=== PATIENT | female | born 1960 | race Caucasian/White ===

== ENCOUNTER 2020-10-30 05:50 | Outpatient (REF) | payer OTHER, SELFPAY ==
[2020-10-30 06:14] LABS: MANUAL DIFF FLAG NO
[2020-10-30 06:51] LABS: Alanine Aminotransferase 10 U/L (0-31); Albumin Level 2.6 g/dL (3.5-5.0); Alkaline Phosphatase 89 U/L (39-117); Anion Gap 11 (12-20); Aspartate Amino Transferase 19 U/L (5-31); Bilirubin Total 1.1 mg/dL (0.0-1.0); Blood Urea Nitrogen 27 mg/dL (9-16); Carbon Dioxide 28 mmol/L (22-29); Chloride 101 mmol/L (96-108); Glucose Random 160 mg/dL (60-115); Sodium 136 mmol/L (135-145); Total Protein 5.2 g/dL (6.5-8.0)
[2020-10-30 06:53] LABS: Basophils Percent Auto 0.9 % (0-2); Eosinophils Absolute Auto 0.2 X10*3/uL (0.0-0.4); Eosinophils Percent Auto 3.6 % (0-4); Hematocrit 29.5 % (37-47); Hemoglobin 8.9 g/dl (12.0-16.0); Imm Gran Abs Auto 0.01 X10*3/uL (0.00-0.03); Imm Gran Pct Auto 0.2 % (0.0-0.4); Lymphocytes Absolute Auto 0.8 X10*3/uL (1.2-4.9); Lymphocytes Percent Auto 17.2 % (20-40); Mean Corpuscular HGB Conc 30.2 g/dl (31.0-35.0); Mean Corpuscular Hemoglobin 23.1 pg (27.0-33.0); Mean Corpuscular Volume 76.4 fL (80-98); Monocytes Absolute Auto 0.5 X10*3/uL (0.1-1.2); Monocytes Percent Auto 10.8 % (2-11); Neutrophils Percent Auto 67.3 % (45-73); Red Blood Count 3.86 X10*6/uL (4.20-5.50); Red Cell Distribution Width 19.6 % (11.0-16.0); White Blood Count 4.4 X10*3/uL (4.8-10.8)
[2020-10-30 06:56] LABS: Platelet Count 90 X10*3/uL (160-400)
[2020-10-30 07:05] LABS: Estimated Glomerular Filt Rate 10
== END 2020-10-30 05:51 | disposition home or self-care (01) ==
LOC: HO.MMNH3L 05:50
PROVIDERS: Visit Provider Family Medicine
DX: N18.4 Chronic kidney disease, stage 4 (severe) (principal); E11.22 Type 2 diabetes mellitus with diabetic chronic kidney disease
CPT/HCPCS: 36415; 80053; 85025

== ENCOUNTER 2020-11-03 09:56 | Outpatient (REF) | payer OTHER, SELFPAY ==
[2020-11-03 08:33] LABS: Hematocrit 30.6 % (37-47); Mean Corpuscular HGB Conc 29.4 g/dl (31.0-35.0)
[2020-11-03 08:34] LABS: Mean Corpuscular Hemoglobin 22.3 pg (27.0-33.0); Mean Corpuscular Volume 75.9 fL (80-98); Red Blood Count 4.03 X10*6/uL (4.20-5.50); Red Cell Distribution Width 18.3 % (11.0-16.0); White Blood Count 5.1 X10*3/uL (4.8-10.8)
[2020-11-03 09:13] LABS: Anion Gap 12 (12-20); Blood Urea Nitrogen 22 mg/dL (9-16); Calcium 8.7 mg/dL (8.4-10.2); Carbon Dioxide 29 mmol/L (22-29); Chloride 102 mmol/L (96-108); Estimated Glomerular Filt Rate 13; Glucose Random 90 mg/dL (60-115); Sodium 139 mmol/L (135-145)
[2020-11-03 09:19] LABS: Platelet Count 92 X10*3/uL (160-400)
[2020-11-03 09:20] LABS: PLT ABN DIST 1
== END 2020-11-03 09:57 | disposition home or self-care (01) ==
LOC: HO.MMNH3L 09:56
PROVIDERS: Visit Provider Family Medicine
DX: E11.22 Type 2 diabetes mellitus with diabetic chronic kidney disease (principal); N18.4 Chronic kidney disease, stage 4 (severe)
CPT/HCPCS: 36415; 80048; 85027

== ENCOUNTER 2020-11-10 00:19 | Outpatient (REF) | payer OTHER, SELFPAY ==
[2020-11-10 07:39] LABS: Mean Corpuscular HGB Conc 29.6 g/dl (31.0-35.0); Mean Corpuscular Volume 77.5 fL (80-98)
[2020-11-10 07:41] LABS: Hematocrit 33.1 % (37-47); Hemoglobin 9.8 g/dl (12.0-16.0); Platelet Count 109 X10*3/uL (160-400); Red Blood Count 4.27 X10*6/uL (4.20-5.50); Red Cell Distribution Width 17.2 % (11.0-16.0); White Blood Count 6.8 X10*3/uL (4.8-10.8)
[2020-11-10 07:53] LABS: PLT ABN DIST 1
[2020-11-10 08:10] LABS: Anion Gap 14 (12-20); Blood Urea Nitrogen 21 mg/dL (9-16); Carbon Dioxide 30 mmol/L (22-29); Chloride 101 mmol/L (96-108); Estimated Glomerular Filt Rate 12; Glucose Random 90 mg/dL (60-115); Potassium 3.6 mmol/L (3.3-5.1); Sodium 141 mmol/L (135-145)
== END 2020-11-10 00:20 | disposition home or self-care (01) ==
LOC: HO.MMNH3L 00:19
PROVIDERS: Visit Provider Family Medicine
DX: E11.22 Type 2 diabetes mellitus with diabetic chronic kidney disease (principal); N18.4 Chronic kidney disease, stage 4 (severe)
CPT/HCPCS: 36415; 80048; 85027

== ENCOUNTER 2020-11-17 00:55 | Outpatient (REF) | payer OTHER, SELFPAY ==
[2020-11-17 07:39] LABS: Hematocrit 31.6 % (37-47); Hemoglobin 9.3 g/dl (12.0-16.0); Mean Corpuscular HGB Conc 29.4 g/dl (31.0-35.0); Mean Corpuscular Hemoglobin 22.3 pg (27.0-33.0); Mean Corpuscular Volume 75.8 fL (80-98); Red Blood Count 4.17 X10*6/uL (4.20-5.50); Red Cell Distribution Width 16.7 % (11.0-16.0); White Blood Count 6.7 X10*3/uL (4.8-10.8)
[2020-11-17 07:40] LABS: Platelet Count 79 X10*3/uL (160-400)
[2020-11-17 08:57] LABS: Anion Gap 14 (12-20); Blood Urea Nitrogen 23 mg/dL (9-16); Calcium 8.9 mg/dL (8.4-10.2); Carbon Dioxide 27 mmol/L (22-29); Chloride 102 mmol/L (96-108); Estimated Glomerular Filt Rate 13; Glucose Random 48 mg/dL (60-115); Potassium 3.6 mmol/L (3.3-5.1); Sodium 139 mmol/L (135-145)
== END 2020-11-17 00:56 | disposition home or self-care (01) ==
LOC: HO.MMNH3L 00:55
PROVIDERS: Visit Provider Family Medicine
DX: E11.22 Type 2 diabetes mellitus with diabetic chronic kidney disease (principal); N18.4 Chronic kidney disease, stage 4 (severe)
CPT/HCPCS: 36415; 80048; 85027

== ENCOUNTER 2020-11-24 00:40 | Outpatient (REF) | payer OTHER, SELFPAY ==
[2020-11-24 07:14] LABS: Hemoglobin 9.3 g/dl (12.0-16.0); Mean Corpuscular HGB Conc 29.1 g/dl (31.0-35.0)
[2020-11-24 07:16] LABS: Mean Corpuscular Hemoglobin 22.4 pg (27.0-33.0); Mean Corpuscular Volume 76.9 fL (80-98); Platelet Count 107 X10*3/uL (160-400); Red Blood Count 4.16 X10*6/uL (4.20-5.50); White Blood Count 5.9 X10*3/uL (4.8-10.8)
[2020-11-24 07:20] LABS: INTERNATIONAL NORM RATIO 1.2 (0.9-1.1)
[2020-11-24 07:54] LABS: Alanine Aminotransferase 14 U/L (0-31); Albumin Level 2.3 g/dL (3.5-5.0); Alkaline Phosphatase 111 U/L (39-117); Anion Gap 12 (12-20); Aspartate Amino Transferase 36 U/L (5-31); Bilirubin Direct 0.6 mg/dL (0.0-0.5); Bilirubin Total 0.9 mg/dL (0.0-1.0); Blood Urea Nitrogen 21 mg/dL (9-16); Calcium 8.8 mg/dL (8.4-10.2); Carbon Dioxide 30 mmol/L (22-29); Chloride 101 mmol/L (96-108); Estimated Glomerular Filt Rate 13; Glucose Random 61 mg/dL (60-115); Potassium 3.4 mmol/L (3.3-5.1); Sodium 140 mmol/L (135-145); Total Protein 5.4 g/dL (6.5-8.0)
== END 2020-11-24 00:41 | disposition home or self-care (01) ==
LOC: HO.MMNH3L 00:40
PROVIDERS: Visit Provider Family Medicine
DX: N18.4 Chronic kidney disease, stage 4 (severe) (principal)
CPT/HCPCS: 36415; 80048; 80076; 85027; 85610

== ENCOUNTER 2020-12-01 00:33 | Outpatient (REF) | payer OTHER, SELFPAY ==
[2020-12-01 06:50] LABS: Mean Corpuscular Volume 75.7 fL (80-98); Red Cell Distribution Width 16.8 % (11.0-16.0)
[2020-12-01 06:52] LABS: Hematocrit 30.8 % (37-47); Hemoglobin 9.1 g/dl (12.0-16.0); Mean Corpuscular HGB Conc 29.5 g/dl (31.0-35.0); Mean Corpuscular Hemoglobin 22.4 pg (27.0-33.0); Red Blood Count 4.07 X10*6/uL (4.20-5.50); White Blood Count 5.2 X10*3/uL (4.8-10.8)
[2020-12-01 07:37] LABS: Platelet Count 77 X10*3/uL (160-400)
[2020-12-01 07:38] LABS: PLT ABN DIST 1
[2020-12-01 08:40] LABS: Anion Gap 15 (12-20); Blood Urea Nitrogen 30 mg/dL (9-16); Calcium 8.9 mg/dL (8.4-10.2); Carbon Dioxide 28 mmol/L (22-29); Chloride 101 mmol/L (96-108); Estimated Glomerular Filt Rate 11; Glucose Random 40 mg/dL (60-115); Potassium 4.1 mmol/L (3.3-5.1); Sodium 140 mmol/L (135-145)
== END 2020-12-01 00:34 | disposition home or self-care (01) ==
LOC: HO.MMNH3L 00:33
PROVIDERS: Visit Provider Family Medicine
DX: E11.22 Type 2 diabetes mellitus with diabetic chronic kidney disease (principal); N18.9 Chronic kidney disease, unspecified
CPT/HCPCS: 36415; 80048; 85027

== ENCOUNTER 2020-12-08 01:02 | Outpatient (REF) | payer OTHER, SELFPAY ==
[2020-12-08 07:33] LABS: Hemoglobin 10.2 g/dl (12.0-16.0); Mean Corpuscular Hemoglobin 22.3 pg (27.0-33.0); Red Blood Count 4.58 X10*6/uL (4.20-5.50)
[2020-12-08 07:34] LABS: Hematocrit 35.6 % (37-47); Mean Corpuscular HGB Conc 28.7 g/dl (31.0-35.0); Mean Corpuscular Volume 77.7 fL (80-98); Platelet Count 109 X10*3/uL (160-400); Red Cell Distribution Width 17.2 % (11.0-16.0); White Blood Count 6.8 X10*3/uL (4.8-10.8)
[2020-12-08 07:37] LABS: INTERNATIONAL NORM RATIO 1.1 (0.9-1.1); Prothrombin Time 13.3 SEC (10.8-13.0)
[2020-12-08 08:09] LABS: PLT ABN DIST 1
[2020-12-08 08:15] LABS: Anion Gap 14 (12-20); Blood Urea Nitrogen 24 mg/dL (9-16); Calcium 9.2 mg/dL (8.4-10.2); Carbon Dioxide 28 mmol/L (22-29); Chloride 102 mmol/L (96-108); Estimated Glomerular Filt Rate 12; Glucose Random 75 mg/dL (60-115); Potassium 4.2 mmol/L (3.3-5.1); Sodium 140 mmol/L (135-145)
[2020-12-08 11:55] LABS: Ammonia 61 umol/L (13-55)
== END 2020-12-08 01:03 | disposition home or self-care (01) ==
LOC: HO.MMNH3L 01:02
PROVIDERS: Visit Provider Family Medicine
DX: K75.81 Nonalcoholic steatohepatitis (NASH) (principal); N17.9 Acute kidney failure, unspecified; E11.22 Type 2 diabetes mellitus with diabetic chronic kidney disease; N18.9 Chronic kidney disease, unspecified
CPT/HCPCS: 36415; 80048; 82140; 85027; 85610

== ENCOUNTER 2020-12-15 05:00 | Outpatient (REF) | payer OTHER, SELFPAY ==
[2020-12-15 07:02] LABS: INTERNATIONAL NORM RATIO 1.1 (0.9-1.1); Prothrombin Time 13.5 SEC (10.8-13.0)
[2020-12-15 07:08] LABS: Hemoglobin 10.2 g/dl (12.0-16.0)
[2020-12-15 07:10] LABS: Hematocrit 34.2 % (37-47); Mean Corpuscular HGB Conc 29.8 g/dl (31.0-35.0); Mean Corpuscular Hemoglobin 22.9 pg (27.0-33.0); Mean Corpuscular Volume 76.7 fL (80-98); Red Blood Count 4.46 X10*6/uL (4.20-5.50); Red Cell Distribution Width 17.8 % (11.0-16.0); White Blood Count 5.9 X10*3/uL (4.8-10.8)
[2020-12-15 07:25] LABS: Platelet Count 83 X10*3/uL (160-400)
[2020-12-15 07:54] LABS: Alanine Aminotransferase 18 U/L (0-31); Albumin Level 2.4 g/dL (3.5-5.0); Alkaline Phosphatase 117 U/L (39-117); Anion Gap 16 (12-20); Aspartate Amino Transferase 35 U/L (5-31); Bilirubin Direct 0.7 mg/dL (0.0-0.5); Bilirubin Total 1.3 mg/dL (0.0-1.0); Blood Urea Nitrogen 26 mg/dL (9-16); Calcium 9.1 mg/dL (8.4-10.2); Carbon Dioxide 26 mmol/L (22-29); Chloride 102 mmol/L (96-108); Estimated Glomerular Filt Rate 11; Glucose Random 61 mg/dL (60-115); Potassium 3.9 mmol/L (3.3-5.1); Sodium 140 mmol/L (135-145); Total Protein 5.7 g/dL (6.5-8.0)
== END 2020-12-15 05:01 ==
LOC: HO.MMNH1L 05:00
PROVIDERS: Visit Provider Family Medicine
DX: E11.22 Type 2 diabetes mellitus with diabetic chronic kidney disease (principal); N18.9 Chronic kidney disease, unspecified
CPT/HCPCS: 36415; 80048; 80076; 85027; 85610

== ENCOUNTER 2020-12-22 12:59 | Outpatient (REF) | payer OTHER, SELFPAY ==
[2020-12-22 08:24] LABS: INTERNATIONAL NORM RATIO 1.1 (0.9-1.1); Prothrombin Time 13.4 SEC (10.8-13.0)
[2020-12-22 08:27] LABS: Mean Corpuscular Volume 75.9 fL (80-98)
[2020-12-22 08:29] LABS: Hematocrit 32.4 % (37-47); Hemoglobin 9.4 g/dl (12.0-16.0); Red Blood Count 4.27 X10*6/uL (4.20-5.50); Red Cell Distribution Width 17.2 % (11.0-16.0); White Blood Count 6.2 X10*3/uL (4.8-10.8)
[2020-12-22 08:33] LABS: Platelet Count 90 X10*3/uL (160-400)
[2020-12-22 09:44] LABS: Alanine Aminotransferase 22 U/L (0-31); Albumin Level 2.3 g/dL (3.5-5.0); Alkaline Phosphatase 124 U/L (39-117); Anion Gap 16 (12-20); Aspartate Amino Transferase 39 U/L (5-31); Bilirubin Direct 0.6 mg/dL (0.0-0.5); Bilirubin Total 1.2 mg/dL (0.0-1.0); Blood Urea Nitrogen 34 mg/dL (9-16); Calcium 8.7 mg/dL (8.4-10.2); Carbon Dioxide 26 mmol/L (22-29); Chloride 101 mmol/L (96-108); Estimated Glomerular Filt Rate 11; Glucose Random 133 mg/dL (60-115); Potassium 4.5 mmol/L (3.3-5.1); Sodium 138 mmol/L (135-145); Total Protein 5.4 g/dL (6.5-8.0)
== END 2020-12-22 13:00 | disposition home or self-care (01) ==
LOC: HO.MMNH3L 12:59
PROVIDERS: Visit Provider Family Medicine
DX: N18.4 Chronic kidney disease, stage 4 (severe) (principal); G12.20 Motor neuron disease, unspecified
CPT/HCPCS: 36415; 80048; 80076; 85027; 85610

== ENCOUNTER 2020-12-29 06:42 | Outpatient (REF) | payer MEDICAID, SELFPAY | END 2020-12-29 06:43 | disposition home or self-care (01) | LOC: HO.MMNH3L 06:42 | PROVIDERS: Visit Provider Family Medicine | DX: Z13.89 Encounter for screening for other disorder (principal) ==

== ENCOUNTER 2020-12-31 07:09 | Outpatient (REF) | payer OTHER, SELFPAY ==
[2020-12-31 07:51] LABS: Eosinophils Percent Auto 6.5 % (0-4); Mean Corpuscular HGB Conc 29.7 g/dl (31.0-35.0); Red Cell Distribution Width 17.1 % (11.0-16.0)
[2020-12-31 07:52] LABS: Basophils Percent Auto 0.6 % (0-2); Eosinophils Absolute Auto 0.4 X10*3/uL (0.0-0.4); Hematocrit 31.7 % (37-47); Hemoglobin 9.4 g/dl (12.0-16.0); Imm Gran Abs Auto 0.03 X10*3/uL (0.00-0.03); Imm Gran Pct Auto 0.5 % (0.0-0.4); Lymphocytes Absolute Auto 0.8 X10*3/uL (1.2-4.9); Lymphocytes Percent Auto 11.4 % (20-40); Mean Corpuscular Hemoglobin 22.5 pg (27.0-33.0); Mean Corpuscular Volume 75.8 fL (80-98); Monocytes Absolute Auto 0.6 X10*3/uL (0.1-1.2); Monocytes Percent Auto 9.7 % (2-11); Neutrophils Absolute Auto 4.7 X10*3/uL (2.0-8.3); Neutrophils Percent Auto 71.3 % (45-73); Platelet Count 108 X10*3/uL (160-400); Red Blood Count 4.18 X10*6/uL (4.20-5.50); White Blood Count 6.6 X10*3/uL (4.8-10.8)
[2020-12-31 07:54] LABS: MANUAL DIFF FLAG NO
[2020-12-31 07:55] LABS: INTERNATIONAL NORM RATIO 1.1 (0.9-1.1); Prothrombin Time 13.3 SEC (10.8-13.0)
[2020-12-31 08:35] LABS: Alanine Aminotransferase 11 U/L (0-31); Albumin Level 2.1 g/dL (3.5-5.0); Alkaline Phosphatase 92 U/L (39-117); Anion Gap 13 (12-20); Aspartate Amino Transferase 27 U/L (5-31); Bilirubin Total 1.4 mg/dL (0.0-1.0); Blood Urea Nitrogen 30 mg/dL (9-16); Calcium 8.4 mg/dL (8.4-10.2); Carbon Dioxide 27 mmol/L (22-29); Chloride 101 mmol/L (96-108); Estimated Glomerular Filt Rate 10; Glucose Random 64 mg/dL (60-115); Potassium 3.6 mmol/L (3.3-5.1); Sodium 137 mmol/L (135-145); Total Protein 4.9 g/dL (6.5-8.0)
== END 2020-12-31 07:10 | disposition home or self-care (01) ==
LOC: HO.MMNH3L 07:09
PROVIDERS: Visit Provider Family Medicine
DX: K75.81 Nonalcoholic steatohepatitis (NASH) (principal); E66.9 Obesity, unspecified; E11.22 Type 2 diabetes mellitus with diabetic chronic kidney disease; N18.4 Chronic kidney disease, stage 4 (severe)
CPT/HCPCS: 36415; 80053; 85025; 85610

== ENCOUNTER 2021-01-05 00:37 | Outpatient (REF) | payer OTHER, SELFPAY ==
[2021-01-05 07:42] LABS: Red Cell Distribution Width 16.9 % (11.0-16.0)
[2021-01-05 07:44] LABS: Hemoglobin 8.9 g/dl (12.0-16.0); Mean Corpuscular HGB Conc 29.7 g/dl (31.0-35.0); Mean Corpuscular Hemoglobin 22.4 pg (27.0-33.0); Mean Corpuscular Volume 75.6 fL (80-98); Red Blood Count 3.97 X10*6/uL (4.20-5.50); White Blood Count 6.8 X10*3/uL (4.8-10.8)
[2021-01-05 07:50] LABS: INTERNATIONAL NORM RATIO 1.1 (0.9-1.1); Prothrombin Time 13.5 SEC (10.8-13.0)
[2021-01-05 08:08] LABS: PLT ABN DIST 1; Platelet Count 88 X10*3/uL (160-400)
[2021-01-05 08:44] LABS: Alanine Aminotransferase 12 U/L (0-31); Alkaline Phosphatase 95 U/L (39-117); Anion Gap 12 (12-20); Aspartate Amino Transferase 24 U/L (5-31); Bilirubin Direct 0.5 mg/dL (0.0-0.5); Bilirubin Total 0.8 mg/dL (0.0-1.0); Blood Urea Nitrogen 30 mg/dL (9-16); Calcium 8.3 mg/dL (8.4-10.2); Carbon Dioxide 30 mmol/L (22-29); Chloride 102 mmol/L (96-108); Estimated Glomerular Filt Rate 11; Glucose Random 113 mg/dL (60-115); Potassium 3.7 mmol/L (3.3-5.1); Sodium 140 mmol/L (135-145); Total Protein 4.6 g/dL (6.5-8.0)
== END 2021-01-05 00:38 | disposition home or self-care (01) ==
LOC: HO.MMNH3L 00:37
PROVIDERS: Visit Provider Family Medicine
DX: E11.22 Type 2 diabetes mellitus with diabetic chronic kidney disease (principal); N18.4 Chronic kidney disease, stage 4 (severe)
CPT/HCPCS: 36415; 80048; 80076; 85027; 85610

== ENCOUNTER 2021-01-12 10:26 | Outpatient (REF) | payer OTHER, SELFPAY ==
[2021-01-12 07:52] LABS: INTERNATIONAL NORM RATIO 1.1 (0.9-1.1); Prothrombin Time 13.2 SEC (10.8-13.0)
[2021-01-12 08:10] LABS: Hematocrit 32.5 % (37-47); Hemoglobin 9.7 g/dl (12.0-16.0); Mean Corpuscular HGB Conc 29.8 g/dl (31.0-35.0); Mean Corpuscular Hemoglobin 22.4 pg (27.0-33.0); Mean Corpuscular Volume 75.1 fL (80-98); Platelet Count 132 X10*3/uL (160-400); Red Blood Count 4.33 X10*6/uL (4.20-5.50); Red Cell Distribution Width 16.4 % (11.0-16.0); White Blood Count 8.5 X10*3/uL (4.8-10.8)
[2021-01-12 08:45] LABS: Alanine Aminotransferase 20 U/L (0-31); Albumin Level 2.1 g/dL (3.5-5.0); Alkaline Phosphatase 126 U/L (39-117); Anion Gap 14 (12-20); Aspartate Amino Transferase 36 U/L (5-31); Bilirubin Direct 0.7 mg/dL (0.0-0.5); Bilirubin Total 1.5 mg/dL (0.0-1.0); Blood Urea Nitrogen 28 mg/dL (9-16); Calcium 8.7 mg/dL (8.4-10.2); Carbon Dioxide 28 mmol/L (22-29); Chloride 99 mmol/L (96-108); Estimated Glomerular Filt Rate 12; Glucose Random 82 mg/dL (60-115); Potassium 3.8 mmol/L (3.3-5.1); Sodium 137 mmol/L (135-145)
== END 2021-01-12 10:27 | disposition home or self-care (01) ==
LOC: HO.MMNH3L 10:26
PROVIDERS: Visit Provider Family Medicine
DX: E11.22 Type 2 diabetes mellitus with diabetic chronic kidney disease (principal); N18.4 Chronic kidney disease, stage 4 (severe)
CPT/HCPCS: 36415; 80048; 80076; 85027; 85610

== ENCOUNTER 2021-01-19 00:33 | Outpatient (REF) | payer OTHER, SELFPAY ==
[2021-01-19 08:10] LABS: INTERNATIONAL NORM RATIO 1.1 (0.9-1.1); Prothrombin Time 13.2 SEC (10.8-13.0)
[2021-01-19 08:14] LABS: Hematocrit 32.3 % (37-47); Hemoglobin 9.6 g/dl (12.0-16.0); Mean Corpuscular HGB Conc 29.7 g/dl (31.0-35.0); Mean Corpuscular Hemoglobin 22.5 pg (27.0-33.0); Mean Corpuscular Volume 75.6 fL (80-98); Red Blood Count 4.27 X10*6/uL (4.20-5.50); Red Cell Distribution Width 16.6 % (11.0-16.0); White Blood Count 6.7 X10*3/uL (4.8-10.8)
[2021-01-19 08:21] LABS: Platelet Count 90 X10*3/uL (160-400)
[2021-01-19 08:52] LABS: Alanine Aminotransferase 18 U/L (0-31); Albumin Level 2.1 g/dL (3.5-5.0); Alkaline Phosphatase 121 U/L (39-117); Anion Gap 14 (12-20); Aspartate Amino Transferase 31 U/L (5-31); Bilirubin Direct 0.6 mg/dL (0.0-0.5); Bilirubin Total 1.1 mg/dL (0.0-1.0); Blood Urea Nitrogen 35 mg/dL (9-16); Calcium 8.4 mg/dL (8.4-10.2); Carbon Dioxide 27 mmol/L (22-29); Chloride 101 mmol/L (96-108); Estimated Glomerular Filt Rate 11; Glucose Random 75 mg/dL (60-115); Sodium 138 mmol/L (135-145); Total Protein 5.1 g/dL (6.5-8.0)
== END 2021-01-19 00:34 | disposition home or self-care (01) ==
LOC: HO.MMNH3L 00:33
PROVIDERS: Visit Provider Family Medicine
DX: E11.22 Type 2 diabetes mellitus with diabetic chronic kidney disease (principal); N18.4 Chronic kidney disease, stage 4 (severe)
CPT/HCPCS: 36415; 80048; 80076; 85027; 85610

== ENCOUNTER 2021-01-26 01:06 | Outpatient (REF) | payer OTHER, SELFPAY ==
[2021-01-26 06:50] LABS: INTERNATIONAL NORM RATIO 1.2 (0.9-1.1); Prothrombin Time 14.4 SEC (10.8-13.0)
[2021-01-26 06:52] LABS: Hematocrit 32.4 % (37-47); Hemoglobin 9.6 g/dl (12.0-16.0); Mean Corpuscular HGB Conc 29.6 g/dl (31.0-35.0); Mean Corpuscular Hemoglobin 22.3 pg (27.0-33.0); Mean Corpuscular Volume 75.2 fL (80-98); Mean Platelet Volume 8.9 fL (9.4-12.3); Platelet Count 140 X10*3/uL (160-400); Red Blood Count 4.31 X10*6/uL (4.20-5.50); Red Cell Distribution Width 16.3 % (11.0-16.0); White Blood Count 8.1 X10*3/uL (4.8-10.8)
[2021-01-26 07:56] LABS: Alanine Aminotransferase 17 U/L (0-31); Albumin Level 2.2 g/dL (3.5-5.0); Alkaline Phosphatase 114 U/L (39-117); Anion Gap 13 (12-20); Aspartate Amino Transferase 32 U/L (5-31); Bilirubin Direct 0.8 mg/dL (0.0-0.5); Bilirubin Total 1.9 mg/dL (0.0-1.0); Blood Urea Nitrogen 24 mg/dL (9-16); Calcium 8.7 mg/dL (8.4-10.2); Carbon Dioxide 28 mmol/L (22-29); Chloride 100 mmol/L (96-108); Estimated Glomerular Filt Rate 12; Glucose Random 39 mg/dL (60-115); Potassium 3.9 mmol/L (3.3-5.1); Sodium 137 mmol/L (135-145); Total Protein 4.9 g/dL (6.5-8.0)
== END 2021-01-26 01:07 | disposition home or self-care (01) ==
LOC: HO.MMNH3L 01:06
PROVIDERS: Visit Provider Family Medicine
DX: N18.4 Chronic kidney disease, stage 4 (severe) (principal); E11.22 Type 2 diabetes mellitus with diabetic chronic kidney disease
CPT/HCPCS: 36415; 80048; 80076; 85027; 85610

== ENCOUNTER 2021-02-03 00:26 | Outpatient (REF) | payer OTHER, SELFPAY ==
[2021-02-03 07:16] LABS: Hemoglobin 9.8 g/dl (12.0-16.0); Platelet Count 103 X10*3/uL (160-400)
[2021-02-03 07:18] LABS: Hematocrit 32.6 % (37-47); Mean Corpuscular HGB Conc 30.1 g/dl (31.0-35.0); Mean Corpuscular Hemoglobin 22.3 pg (27.0-33.0); Mean Corpuscular Volume 74.1 fL (80-98); Red Cell Distribution Width 16.1 % (11.0-16.0); White Blood Count 6.8 X10*3/uL (4.8-10.8)
[2021-02-03 07:23] LABS: INTERNATIONAL NORM RATIO 1.2 (0.9-1.1); Prothrombin Time 13.9 SEC (10.8-13.0)
[2021-02-03 07:25] LABS: PLT ABN DIST 1
[2021-02-03 08:25] LABS: Alanine Aminotransferase 17 U/L (0-31); Albumin Level 2.1 g/dL (3.5-5.0); Alkaline Phosphatase 130 U/L (39-117); Anion Gap 13 (12-20); Aspartate Amino Transferase 30 U/L (5-31); Bilirubin Direct 0.5 mg/dL (0.0-0.5); Bilirubin Total 0.8 mg/dL (0.0-1.0); Blood Urea Nitrogen 49 mg/dL (9-16); Calcium 8.4 mg/dL (8.4-10.2); Carbon Dioxide 29 mmol/L (22-29); Chloride 102 mmol/L (96-108); Estimated Glomerular Filt Rate 9; Glucose Random 86 mg/dL (60-115); Potassium 4.8 mmol/L (3.3-5.1); Sodium 139 mmol/L (135-145)
== END 2021-02-03 00:27 | disposition home or self-care (01) ==
LOC: HO.MMNH3L 00:26
PROVIDERS: Visit Provider Family Medicine
DX: E11.22 Type 2 diabetes mellitus with diabetic chronic kidney disease (principal); N18.4 Chronic kidney disease, stage 4 (severe)
CPT/HCPCS: 36415; 80048; 80076; 85027; 85610

== ENCOUNTER 2021-02-09 00:52 | Outpatient (REF) | payer OTHER, SELFPAY ==
[2021-02-09 07:43] LABS: Red Cell Distribution Width 15.9 % (11.0-16.0)
[2021-02-09 07:44] LABS: INTERNATIONAL NORM RATIO 1.2 (0.9-1.1); Prothrombin Time 14.7 SEC (10.8-13.0)
[2021-02-09 07:45] LABS: Hematocrit 30.9 % (37-47); Hemoglobin 9.4 g/dl (12.0-16.0); Mean Corpuscular HGB Conc 30.4 g/dl (31.0-35.0); Mean Corpuscular Hemoglobin 22.4 pg (27.0-33.0); Mean Corpuscular Volume 73.7 fL (80-98); Platelet Count 115 X10*3/uL (160-400); Red Blood Count 4.19 X10*6/uL (4.20-5.50); White Blood Count 6.8 X10*3/uL (4.8-10.8)
[2021-02-09 08:24] LABS: PLT ABN DIST 1
[2021-02-09 08:26] LABS: Alanine Aminotransferase 13 U/L (0-31); Albumin Level 2.1 g/dL (3.5-5.0); Alkaline Phosphatase 111 U/L (39-117); Anion Gap 11 (12-20); Aspartate Amino Transferase 27 U/L (5-31); Bilirubin Direct 0.6 mg/dL (0.0-0.5); Bilirubin Total 1.2 mg/dL (0.0-1.0); Blood Urea Nitrogen 27 mg/dL (9-16); Calcium 8.5 mg/dL (8.4-10.2); Carbon Dioxide 28 mmol/L (22-29); Chloride 101 mmol/L (96-108); Estimated Glomerular Filt Rate 12; Potassium 3.4 mmol/L (3.3-5.1); Sodium 137 mmol/L (135-145); Total Protein 4.5 g/dL (6.5-8.0)
[2021-02-09 08:58] LABS: Glucose Random 59 mg/dL (60-115)
== END 2021-02-09 00:53 | disposition home or self-care (01) ==
LOC: HO.MMNH3L 00:52
PROVIDERS: Visit Provider Family Medicine
DX: E11.22 Type 2 diabetes mellitus with diabetic chronic kidney disease (principal); N18.4 Chronic kidney disease, stage 4 (severe)
CPT/HCPCS: 36415; 80048; 80076; 85027; 85610

== ENCOUNTER 2021-02-16 00:29 | Outpatient (REF) | payer OTHER, SELFPAY ==
[2021-02-16 06:59] LABS: INTERNATIONAL NORM RATIO 1.1 (0.9-1.1); Prothrombin Time 13.6 SEC (10.8-13.0)
[2021-02-16 07:08] LABS: Hematocrit 32.2 % (37-47); Hemoglobin 9.6 g/dl (12.0-16.0); Mean Corpuscular HGB Conc 29.8 g/dl (31.0-35.0); Mean Corpuscular Hemoglobin 22.4 pg (27.0-33.0); Mean Corpuscular Volume 75.1 fL (80-98); Red Blood Count 4.29 X10*6/uL (4.20-5.50); Red Cell Distribution Width 17.2 % (11.0-16.0); White Blood Count 5.5 X10*3/uL (4.8-10.8)
[2021-02-16 07:19] LABS: Platelet Count 80 X10*3/uL (160-400)
[2021-02-16 08:32] LABS: Alanine Aminotransferase 15 U/L (0-31); Albumin Level 2.3 g/dL (3.5-5.0); Alkaline Phosphatase 130 U/L (39-117); Anion Gap 15 (12-20); Aspartate Amino Transferase 31 U/L (5-31); Bilirubin Direct 0.6 mg/dL (0.0-0.5); Blood Urea Nitrogen 31 mg/dL (9-16); Calcium 8.6 mg/dL (8.4-10.2); Carbon Dioxide 28 mmol/L (22-29); Chloride 100 mmol/L (96-108); Estimated Glomerular Filt Rate 10; Glucose Random 153 mg/dL (60-115); Potassium 3.6 mmol/L (3.3-5.1); Sodium 139 mmol/L (135-145)
== END 2021-02-16 00:30 | disposition home or self-care (01) ==
LOC: HO.MMNH3L 00:29
PROVIDERS: Visit Provider Family Medicine
DX: N18.4 Chronic kidney disease, stage 4 (severe) (principal); E11.22 Type 2 diabetes mellitus with diabetic chronic kidney disease
CPT/HCPCS: 36415; 80048; 80076; 85027; 85610

== ENCOUNTER 2021-02-23 07:05 | Outpatient (REF) | payer OTHER, SELFPAY ==
[2021-02-23 07:09] LABS: INTERNATIONAL NORM RATIO 1.2 (0.9-1.1); Prothrombin Time 14.2 SEC (10.8-13.0)
[2021-02-23 07:18] LABS: Red Cell Distribution Width 15.9 % (11.0-16.0)
[2021-02-23 07:20] LABS: Hematocrit 31.3 % (37-47); Hemoglobin 9.4 g/dl (12.0-16.0); Mean Corpuscular Volume 73.3 fL (80-98); Red Blood Count 4.27 X10*6/uL (4.20-5.50)
[2021-02-23 07:28] LABS: PLT ABN DIST 1
[2021-02-23 08:12] LABS: Alanine Aminotransferase 15 U/L (0-31); Albumin Level 2.3 g/dL (3.5-5.0); Alkaline Phosphatase 103 U/L (39-117); Anion Gap 10 (12-20); Aspartate Amino Transferase 29 U/L (5-31); Bilirubin Direct 0.6 mg/dL (0.0-0.5); Bilirubin Total 0.9 mg/dL (0.0-1.0); Blood Urea Nitrogen 32 mg/dL (9-16); Calcium 8.8 mg/dL (8.4-10.2); Carbon Dioxide 29 mmol/L (22-29); Chloride 104 mmol/L (96-108); Estimated Glomerular Filt Rate 11; Glucose Random 130 mg/dL (60-115); Potassium 4.4 mmol/L (3.3-5.1); Sodium 139 mmol/L (135-145); Total Protein 4.7 g/dL (6.5-8.0)
[2021-02-23 09:00] LABS: Platelet Count 94 X10*3/uL (160-400); White Blood Count 6.4 X10*3/uL (4.8-10.8)
== END 2021-02-23 07:06 | disposition home or self-care (01) ==
LOC: HO.MMNH3L 07:05
PROVIDERS: Visit Provider Family Medicine
DX: E11.21 Type 2 diabetes mellitus with diabetic nephropathy (principal); N18.4 Chronic kidney disease, stage 4 (severe)
CPT/HCPCS: 36415; 80048; 80076; 82105; 85027; 85610

== ENCOUNTER 2021-03-02 00:30 | Outpatient (REF) | payer OTHER, SELFPAY ==
[2021-03-02 06:13] LABS: Hematocrit 31.9 % (37-47); Hemoglobin 9.4 g/dl (12.0-16.0); Mean Corpuscular HGB Conc 29.5 g/dl (31.0-35.0); Mean Corpuscular Hemoglobin 22.1 pg (27.0-33.0); Mean Corpuscular Volume 74.9 fL (80-98); Red Blood Count 4.26 X10*6/uL (4.20-5.50); Red Cell Distribution Width 16.1 % (11.0-16.0); White Blood Count 8.7 X10*3/uL (4.8-10.8)
[2021-03-02 06:28] LABS: PLT ABN DIST 1; Platelet Count 95 X10*3/uL (160-400)
[2021-03-02 06:38] LABS: Alanine Aminotransferase 18 U/L (0-31); Albumin Level 2.2 g/dL (3.5-5.0); Alkaline Phosphatase 104 U/L (39-117); Anion Gap 7 (12-20); Aspartate Amino Transferase 30 U/L (5-31); Bilirubin Direct 0.7 mg/dL (0.0-0.5); Bilirubin Total 1.4 mg/dL (0.0-1.0); Blood Urea Nitrogen 34 mg/dL (9-16); Calcium 8.9 mg/dL (8.4-10.2); Carbon Dioxide 32 mmol/L (22-29); Chloride 103 mmol/L (96-108); Potassium 4.4 mmol/L (3.3-5.1); Sodium 138 mmol/L (135-145); Total Protein 4.6 g/dL (6.5-8.0)
[2021-03-02 06:46] LABS: INTERNATIONAL NORM RATIO 1.2 (0.9-1.1); Prothrombin Time 14.2 SEC (10.8-13.0)
[2021-03-02 06:55] LABS: Estimated Glomerular Filt Rate 10; Glucose Random 33 mg/dL (60-115)
== END 2021-03-02 00:31 | disposition home or self-care (01) ==
LOC: HO.MMNH3L 00:30
PROVIDERS: Visit Provider Family Medicine
DX: E11.22 Type 2 diabetes mellitus with diabetic chronic kidney disease (principal); N18.4 Chronic kidney disease, stage 4 (severe)
CPT/HCPCS: 36415; 80048; 80076; 85027; 85610

== ENCOUNTER 2021-03-09 00:12 | Outpatient (REF) | payer OTHER, SELFPAY ==
[2021-03-09 06:51] LABS: INTERNATIONAL NORM RATIO 1.2 (0.9-1.1); Prothrombin Time 13.7 SEC (9.9-13.0)
[2021-03-09 07:08] LABS: Hematocrit 31.6 % (37-47); Mean Corpuscular Volume 73.7 fL (80-98); Red Blood Count 4.29 X10*6/uL (4.20-5.50)
[2021-03-09 07:10] LABS: Hemoglobin 9.6 g/dl (12.0-16.0); Mean Corpuscular HGB Conc 30.4 g/dl (31.0-35.0); Mean Corpuscular Hemoglobin 22.4 pg (27.0-33.0); Red Cell Distribution Width 17.1 % (11.0-16.0); White Blood Count 6.5 X10*3/uL (4.8-10.8)
[2021-03-09 07:18] LABS: Platelet Count 73 X10*3/uL (160-400)
[2021-03-09 08:01] LABS: Alanine Aminotransferase 18 U/L (0-31); Albumin Level 2.4 g/dL (3.5-5.0); Alkaline Phosphatase 112 U/L (39-117); Anion Gap 15 (12-20); Aspartate Amino Transferase 32 U/L (5-31); Bilirubin Direct 0.5 mg/dL (0.0-0.5); Bilirubin Total 1.2 mg/dL (0.0-1.0); Blood Urea Nitrogen 36 mg/dL (9-16); Calcium 8.8 mg/dL (8.4-10.2); Carbon Dioxide 25 mmol/L (22-29); Chloride 101 mmol/L (96-108); Estimated Glomerular Filt Rate 11; Glucose Random 91 mg/dL (60-115); Potassium 4.4 mmol/L (3.3-5.1); Sodium 137 mmol/L (135-145); Total Protein 4.8 g/dL (6.5-8.0)
== END 2021-03-09 00:13 | disposition home or self-care (01) ==
LOC: HO.MMNH3L 00:12
PROVIDERS: Visit Provider Family Medicine
DX: N18.9 Chronic kidney disease, unspecified (principal); E11.22 Type 2 diabetes mellitus with diabetic chronic kidney disease
CPT/HCPCS: 36415; 80048; 80076; 85027; 85610

== ENCOUNTER 2021-03-16 | Outpatient (REF) | payer OTHER, SELFPAY ==
[2021-03-16 07:26] LABS: Hematocrit 30.7 % (37-47); Hemoglobin 9.1 g/dl (12.0-16.0); Mean Corpuscular HGB Conc 29.6 g/dl (31.0-35.0); Mean Corpuscular Hemoglobin 22.2 pg (27.0-33.0); Mean Corpuscular Volume 74.9 fL (80-98); Red Cell Distribution Width 16.1 % (11.0-16.0); White Blood Count 5.6 X10*3/uL (4.8-10.8)
[2021-03-16 07:36] LABS: INTERNATIONAL NORM RATIO 1.2 (0.9-1.1); Prothrombin Time 13.3 SEC (9.9-13.0)
[2021-03-16 07:47] LABS: Platelet Count 80 X10*3/uL (160-400)
[2021-03-16 08:31] LABS: Alanine Aminotransferase 20 U/L (0-31); Albumin Level 2.2 g/dL (3.5-5.0); Alkaline Phosphatase 119 U/L (39-117); Anion Gap 12 (12-20); Aspartate Amino Transferase 31 U/L (5-31); Bilirubin Direct 0.5 mg/dL (0.0-0.5); Bilirubin Total 0.9 mg/dL (0.0-1.0); Blood Urea Nitrogen 44 mg/dL (9-16); Carbon Dioxide 27 mmol/L (22-29); Chloride 103 mmol/L (96-108); Estimated Glomerular Filt Rate 10; Glucose Random 108 mg/dL (60-115); Potassium 4.4 mmol/L (3.3-5.1); Sodium 138 mmol/L (135-145); Total Protein 4.7 g/dL (6.5-8.0)
== END 2021-03-16 00:01 | disposition home or self-care (01) ==
LOC: HO.MMNH3L
PROVIDERS: Visit Provider Family Medicine
DX: E11.22 Type 2 diabetes mellitus with diabetic chronic kidney disease (principal); N18.9 Chronic kidney disease, unspecified
CPT/HCPCS: 36415; 80048; 80076; 85027; 85610

== ENCOUNTER 2021-03-23 00:47 | Outpatient (REF) | payer OTHER, SELFPAY ==
[2021-03-23 06:15] LABS: Mean Corpuscular Volume 74.4 fL (80-98); PLT ABN DIST 1; Red Cell Distribution Width 17.2 % (11.0-16.0)
[2021-03-23 06:16] LABS: Hematocrit 30.2 % (37-47); Hemoglobin 9.2 g/dl (12.0-16.0); INTERNATIONAL NORM RATIO 1.1 (0.9-1.1); Mean Corpuscular HGB Conc 30.5 g/dl (31.0-35.0); Mean Corpuscular Hemoglobin 22.7 pg (27.0-33.0); Prothrombin Time 12.8 SEC (9.9-13.0); Red Blood Count 4.06 X10*6/uL (4.20-5.50); White Blood Count 6.7 X10*3/uL (4.8-10.8)
[2021-03-23 06:18] LABS: Platelet Count 77 X10*3/uL (160-400)
[2021-03-23 06:28] LABS: Alanine Aminotransferase 19 U/L (0-31); Albumin Level 2.3 g/dL (3.5-5.0); Alkaline Phosphatase 122 U/L (39-117); Anion Gap 13 (12-20); Aspartate Amino Transferase 31 U/L (5-31); Bilirubin Direct 0.5 mg/dL (0.0-0.5); Blood Urea Nitrogen 34 mg/dL (9-16); Calcium 8.7 mg/dL (8.4-10.2); Carbon Dioxide 30 mmol/L (22-29); Chloride 102 mmol/L (96-108); Estimated Glomerular Filt Rate 12; Glucose Random 127 mg/dL (60-115); Potassium 4.3 mmol/L (3.3-5.1); Sodium 141 mmol/L (135-145); Total Protein 4.7 g/dL (6.5-8.0)
== END 2021-03-23 00:48 | disposition home or self-care (01) ==
LOC: HO.MMNH3L 00:47
PROVIDERS: Visit Provider Family Medicine
DX: N18.4 Chronic kidney disease, stage 4 (severe) (principal); E11.22 Type 2 diabetes mellitus with diabetic chronic kidney disease
CPT/HCPCS: 36415; 80048; 80076; 85027; 85610

== ENCOUNTER 2021-03-30 08:04 | Outpatient (REF) | payer OTHER, SELFPAY ==
[2021-03-30 06:40] LABS: Hemoglobin 9.3 g/dl (12.0-16.0); INTERNATIONAL NORM RATIO 1.2 (0.9-1.1); Prothrombin Time 13.2 SEC (9.9-13.0)
[2021-03-30 06:42] LABS: Hematocrit 31.6 % (37-47); Mean Corpuscular HGB Conc 29.4 g/dl (31.0-35.0); Mean Corpuscular Hemoglobin 22.4 pg (27.0-33.0); Mean Corpuscular Volume 76.1 fL (80-98); Platelet Count 108 X10*3/uL (160-400); Red Blood Count 4.15 X10*6/uL (4.20-5.50); Red Cell Distribution Width 17.1 % (11.0-16.0); White Blood Count 7.5 X10*3/uL (4.8-10.8)
[2021-03-30 07:35] LABS: Alanine Aminotransferase 18 U/L (0-31); Albumin Level 2.2 g/dL (3.5-5.0); Alkaline Phosphatase 122 U/L (39-117); Anion Gap 11 (12-20); Aspartate Amino Transferase 33 U/L (5-31); Bilirubin Direct 0.7 mg/dL (0.0-0.5); Bilirubin Total 1.5 mg/dL (0.0-1.0); Blood Urea Nitrogen 34 mg/dL (9-16); Calcium 8.8 mg/dL (8.4-10.2); Carbon Dioxide 32 mmol/L (22-29); Chloride 104 mmol/L (96-108); Estimated Glomerular Filt Rate 11; Glucose Random 91 mg/dL (60-115); Potassium 5.3 mmol/L (3.3-5.1); Sodium 142 mmol/L (135-145); Total Protein 4.7 g/dL (6.5-8.0)
== END 2021-03-30 08:05 | disposition home or self-care (01) ==
LOC: HO.MMNH3L 08:04
PROVIDERS: Visit Provider Family Medicine
DX: E11.22 Type 2 diabetes mellitus with diabetic chronic kidney disease (principal); N18.4 Chronic kidney disease, stage 4 (severe)
CPT/HCPCS: 36415; 80048; 80076; 85027; 85610

== ENCOUNTER 2021-04-06 21:17 | Outpatient (REF) | payer OTHER, SELFPAY ==
[2021-04-06 06:46] LABS: Hemoglobin 9.2 g/dl (12.0-16.0); Mean Corpuscular Hemoglobin 22.2 pg (27.0-33.0); Red Blood Count 4.14 X10*6/uL (4.20-5.50)
[2021-04-06 06:47] LABS: INTERNATIONAL NORM RATIO 1.2 (0.9-1.1); Prothrombin Time 13.3 SEC (9.9-13.0)
[2021-04-06 06:48] LABS: Hematocrit 30.7 % (37-47); Mean Corpuscular Volume 74.2 fL (80-98); Red Cell Distribution Width 16.9 % (11.0-16.0); White Blood Count 7.3 X10*3/uL (4.8-10.8)
[2021-04-06 06:57] LABS: Alanine Aminotransferase 20 U/L (0-31); Albumin Level 2.2 g/dL (3.5-5.0); Alkaline Phosphatase 127 U/L (39-117); Anion Gap 12 (12-20); Aspartate Amino Transferase 34 U/L (5-31); Bilirubin Direct 0.5 mg/dL (0.0-0.5); Bilirubin Total 0.9 mg/dL (0.0-1.0); Blood Urea Nitrogen 42 mg/dL (9-16); Calcium 8.4 mg/dL (8.4-10.2); Carbon Dioxide 30 mmol/L (22-29); Chloride 99 mmol/L (96-108); Estimated Glomerular Filt Rate 12; Glucose Random 116 mg/dL (60-115); Potassium 5.2 mmol/L (3.3-5.1); Sodium 136 mmol/L (135-145); Total Protein 4.5 g/dL (6.5-8.0)
[2021-04-06 06:59] LABS: Platelet Count 78 X10*3/uL (160-400)
== END 2021-04-06 21:18 | disposition home or self-care (01) ==
LOC: HO.MMNH3L 21:17
PROVIDERS: Visit Provider Family Medicine
DX: E11.22 Type 2 diabetes mellitus with diabetic chronic kidney disease (principal); N18.4 Chronic kidney disease, stage 4 (severe)
CPT/HCPCS: 36415; 80048; 80076; 85027; 85610

== ENCOUNTER 2021-04-09 08:53 | Emergency (ER) | payer OTHER, SELFPAY ==
--- NOTE | 2021-04-09 | ECG_ITS ---
Test Reason : CHEST PRESSURE Blood Pressure : / mmHG Vent. Rate : 066 BPM Atrial Rate : 066 BPM P-R Int : 154 ms QRS Dur : 080 ms QT Int : 448 ms P-R-T Axes : 066 -19 016 degrees QTc Int : 469 ms Normal sinus rhythm Normal ECG No previous ECGs available Referred By: Generic ED Physician Electronically Signed By:Hector Mejia
--- NOTE | ~2021-04-09 | XR_ITS ---
EXAMINATION: XR CHEST CLINICAL INFORMATION: Chest pain while at dialysis COMPARISON: None TECHNIQUE: 2 views of the chest were obtained. FINDINGS: AP and lateral views of the chest demonstrate small lung volumes. There is some parenchymal disease within the left lower lobe which may be related to atelectasis or pneumonitis as well as question of a small left pleural effusion. Heart normal size. No evidence of pulmonary edema. No pneumothorax. Large bore right internal jugular dialysis catheter seen in place with tip at the cavoatrial junction. Status post previous left shoulder arthroplasty. XR/XR chest 2V IMPRESSION: Left lower lobe disease with question small effusion.
[2021-04-09 09:11] VITALS: BP 101/36; BP 106/58; PULSE 66; PULSE 70; RESP 16; TEMP 36.4; O2SAT 100; BMI 33.6
[2021-04-09 09:37] VITALS: PULSE 64
--- NOTE | 2021-04-09 10:06 | PC.NURSE ---
Pt difficult IV stick, this RN and another RN attempted withotu success. Tech to attempt blood draw and will attempt to find another RN for IV insertion
[2021-04-09 11:06] LABS: Imm Gran Abs Auto 0.02 X10*3/uL (0.00-0.03); Imm Gran Pct Auto 0.3 % (0.0-0.4); White Blood Count 5.9 X10*3/uL (4.8-10.8)
[2021-04-09 11:08] LABS: Basophils Absolute Auto 0.1 X10*3/uL (0.0-0.2); Basophils Percent Auto 0.8 % (0-2); Eosinophils Absolute Auto 0.3 X10*3/uL (0.0-0.4); Eosinophils Percent Auto 4.9 % (0-4); Hemoglobin 9.9 g/dl (12.0-16.0); Lymphocytes Absolute Auto 0.7 X10*3/uL (1.2-4.9); Lymphocytes Percent Auto 11.8 % (20-40); Mean Corpuscular HGB Conc 29.1 g/dl (31.0-35.0); Mean Corpuscular Volume 75.6 fL (80-98); Monocytes Absolute Auto 0.5 X10*3/uL (0.1-1.2); Monocytes Percent Auto 8.5 % (2-11); Neutrophils Absolute Auto 4.4 X10*3/uL (2.0-8.3); Neutrophils Percent Auto 73.7 % (45-73); Red Cell Distribution Width 16.3 % (11.0-16.0)
[2021-04-09 11:09] LABS: INTERNATIONAL NORM RATIO 1.1 (0.9-1.1); Prothrombin Time 12.8 SEC (9.9-13.0)
[2021-04-09 11:11] LABS: MANUAL DIFF FLAG NO; Platelet Count 89 X10*3/uL (160-400)
[2021-04-09 11:11] LABS: Partial Thromboplastin Time 32.6 SEC (24.1-38.0)
[2021-04-09 11:28] LABS: Troponin-I High Sensitivity 7.3 ng/L (<3.5-17.0)
--- NOTE | 2021-04-09 12:12 | ED.CHESTPAIN ---
HPI - Chest Pain General Chief Complaint: Chest Pain Stated Complaint: CHEST PRESSURE CX'S 45 MINUTES Time Seen by Provider: 04/09/21 09:00 Source: patient and EMS Mode of arrival: EMS Limitations: no limitations History of Present Illness HPI narrative: 60-year-old female with a past medical history of CKD currently on hemodialysis Tuesday//Saturdays, hypertension, diabetes, liver cirrhosis secondary to MENDOZA, disease of thyroid gland, osteoporosis/arthritis and morbid obesity who presented via EMS to the ED with complaints of sudden onset of chest pain/epigastric abdominal pain after completing 2 hours of hemodialysis prior to arrival with associated dizziness. She denies any fevers, headaches, falls, head trauma, chills, change in vision, neck pain/stiffness, cough, dyspnea exertion, orthopnea, nausea/vomiting/diarrhea/constipation, black or bloody stools, dysuria, hematuria, lower extremity edema or calf tenderness or any other symptoms complaints or concerns at this time. MD complaint: chest pain Pertinent past history: other Onset (ago): minute(s) (45 minutes prior to arrival) Timing of current episode: constant and still present Prior episodes: No Onset: during rest (While having dialysis) Pain location: substernal and left chest Pain radiation: abdomen (Epigastric area) Severity: mild Quality: other (Pressure sensation) Relieving factors: nothing Exacerbating factors: nothing Associated symptoms: other (Dizziness) Treatment prior to arrival: aspirin (324 mg prior to arrival) Risk Factors Coronary artery disease risk factors: diabetes, hyperlipidemia and hypertension Thoracic aortic dissection risk factors: none Related Data On Oral Contraceptives: No Allergies Allergy/AdvReac Type Severity Reaction Status Date / Time nitrofurantoin Allergy Anaphylaxis Verified 04/09/21 09:16 [From Macrobid] Penicillins [PCN] Allergy Anaphylaxis Verified 04/09/21 09:16 Review of Systems Review of Systems: Constitutional : No Weight loss, No Fever, No Chills, No Night Sweats, No Fatigue, No Malaise ENT/Mouth : No Hearing loss, No Ear Pain, No Nasal Congestion, No Sinus Pain, No Hoarseness, No sore throat, No Rhinorrhea, No Swallowing Difficulty Eyes: No Eye Pain, No Swelling, No Redness, No Foreign Body, No Discharge, No Vision Changes Cardiovascular : Positive Chest pain, No SOB, no Dyspnea on Exertion, No Orthopnea, No Edema, No extremity swelling, No Palpitations Respiratory : No Cough, No Sputum, No Wheezing, No Dyspnea Gastrointestinal : Positive Abdominal pain, No Nausea, No Vomiting, No Diarrhea, No Hematochezia, No Melena Genitourinary : No irregular bleeding, No Dysuria, No Urinary Frequency, No Hematuria, No Urinary Incontinence, No Urgency, No Flank Pain, No Urinary Flow Changes, No Hesitancy Musculoskeletal : No joint pain, No Myalgias, No Joint Swelling Skin : No Skin Lesions, No rash Neuro : Positive Dizziness, No Weakness, No Numbness, No Paresthesias, No Loss of Consciousness, No Headache Psych : No Anxiety/Panic, No Depression, No SI/HI/AH/VH Heme/Lymph: No Bruising, No Bleeding,No Lymphadenopathy Endocrine : No Polyuria, No Polydipsia, No Temperature Intolerance Yes all other systems are reviewed and are negative [facility] Past Medical History Attestation statement: The following information was validated with the patient. Medical History Arthritis Cirrhosis Diabetes HTN (hypertension) Social History Social History Patient Tobacco Use Status: Former Tobacco user Use of substances other than those prescribed or required for medical reasons: No Advance Directives: No Advance Directives Information Provided: Yes Physical Exam Vital Signs: Vital Signs: Last Vital Signs Temp 97.9 F 04/09/21 14:06 Pulse 65 04/09/21 14:06 Resp 16 04/09/21 14:06 BP 102/30 L 04/09/21 14:06 Pulse Ox 100 04/09/21 14:06 Body Mass Index 33.6 vital signs have been reviewed as normal and appeared to be correct. Blood pressure hypotensive 101/36. Heart rate normal. Respiration rate normal. Temperature normal. Oxygen saturation normal. Appearance: Alert. Oriented X3. No acute distress. Head: Normal external exam. Normocephalic. Atraumatic. Eyes: PERRLA. EOMI. Conjunctiva and sclera normal. Eyelids normal. ENT: Pharynx normal. Uvula midline. Moist mucous membranes. Neck: Normal inspection. Neck supple. FROM. No adenopathy. Thyroid Normal. No meningeal signs. No neck mass noted. CVS: Normal heart rate and rhythm. Heart sound normal. Pulses normal throughout. No murmurs/rales/gallops. Respiratory: No respiratory distress. Painless inspiration. Breath sounds normal. No wheezes/rales/rhonchi noted. Chest nontender. No accessory muscle usage noted or decreased air movement noted. Abdomen: Soft and nontender. Bowel sounds normal in all 4 quadrants. No distention noted. No organomegaly noted. No visible injury noted. Back: No CVA tenderness. Full range of motion noted. No rashes/lesion/induration/fluctuance or signs of infection noted. Skin: Skin warm and dry. Normal skin color. Normal skin turgor. No rashes/lesions/lacerations noted. Extremities: No lower extremity edema. No calf tenderness is noted. exhibit normal range of motion. Extremities nontender. Neuro: Oriented X 3. No motor deficit. No sensory deficit. Reflexes normal. No focal neuro deficits noted. Vascular: + radial pulses/+ 2 distal pedal pulses/+2 dorsalis pedis b/l. Normal cap refill. No cyanosis noted to upper extremity nails and lower extremity toes nails. Course Course Course Narrative: 9am - 60-year-old female presenting to the ED with complaints of sudden onset of chest pain/epigastric abdominal pain after completing 2 hours of hemodialysis prior to arrival with associated dizziness. - patient is hypotensive at 101/36 this is most likely related to patient just receiving hemodialysis. Otherwise all other vitals are within normal limits. On exam patient is alert oriented x3. Not in any acute distress. No focal deficits are noted. CV RRR. Lungs clear to auscultation. abd soft and mild ttp to epigastric area. Plan: Labs, orthostatic vitals, chest x-ray, EKG and re-evaluate. Reevaluation(s) Reevaluation #1: - labs return patient with mild baseline anemia similar compared to prior. Potassium 5.2. Anion gap 11. BUN 21. Creatinine 2.44. Total bilirubin 1.6 this has been elevated in the past. AST 57. Alkaline phosphate 137. Total CPK 23. Negative delta troponin 7.3 then 7.1. Total protein 5.4. Albumin 2.5. Otherwise all other Labs are at baseline within normal limits. - EKG is sinus rhythm with a ventricular rate of 66 with a normal CO interval normal QRS duration normal QT/QTC interval. No acute ischemic change are noted. - chest x-ray revealed left lower lobe disease with question small infiltrate no acute processes were noted. Therefore will DC home back to the long term facility and instructions to return if any new or worsening symptoms to follow up with primary care provider. Patient understands agrees with this plan. Time: 15:06 [facility] - Chest Pain Medical Records Data Attestation: I reviewed the patient's medical records. Lab Data Attestation: I reviewed the patient's lab results. Result diagrams: 04/09/21 10:52 04/09/21 14:06 Labs: Lab Results 04/09/21 04/09/21 04/09/21 Range/Units 10:51 10:52 10:52 WBC 5.9 (4.8-10.8) X10*3/uL RBC 4.50 (4.20-5.50) X10*6/uL Hgb 9.9 L (12.0-16.0) g/dl Hct 34.0 L (37-47) % MCV 75.6 L (80-98) fL MCH 22.0 L (27.0-33.0) pg MCHC 29.1 L (31.0-35.0) g/dl RDW 16.3 H (11.0-16.0) % Plt Count 89 L (160-400) X10*3/uL MPV Not Reportable Immature Gran % (Auto) 0.3 (0.0-0.4) % Neut % (Auto) 73.7 H (45-73) % Lymph % (Auto) 11.8 L (20-40) % Ballard % (Auto) 8.5 (2-11) % Eos % (Auto) 4.9 H (0-4) % Baso % (Auto) 0.8 (0-2) % Lymph # (Auto) 0.7 L (1.2-4.9) X10*3/uL Ballard # (Auto) 0.5 (0.1-1.2) X10*3/uL Eos # (Auto) 0.3 (0.0-0.4) X10*3/uL Baso # (Auto) 0.1 (0.0-0.2) X10*3/uL Abs Immat Gran (auto) 0.02 (0.00-0.03) X10*3/uL Absolute Neuts (auto) 4.4 (2.0-8.3) X10*3/uL Absolute Nucleated RBC 0.000 (0.0-0.012) X10*3/uL Nucleated RBC % (auto) 0.0 (0.0-0.2) /100WBC PT 12.8 (9.9-13.0) SEC INR 1.1 (0.9-1.1) APTT 32.6 (24.1-38.0) SEC Sodium (135-145) mmol/L Potassium (3.3-5.1) mmol/L Chloride (96-108) mmol/L Carbon Dioxide (22-29) mmol/L Anion Gap (12-20) BUN (9-16) mg/dL Creatinine (0.5-1.4) mg/dL Estim Creat Clear Calc Estimated GFR Random Glucose (60-115) mg/dL Calcium (8.4-10.2) mg/dL Magnesium (1.6-2.6) mg/dL Total Bilirubin (0.0-1.0) mg/dL AST (5-31) U/L ALT (0-31) U/L Alkaline Phosphatase (39-117) U/L Total Creatine Kinase (26-140) U/L Troponin I High Sens 7.3 (<3.5-17.0) ng/L Total Protein (6.5-8.0) g/dL Albumin (3.5-5.0) g/dL Lipase (8-78) U/L 04/09/21 04/09/21 Range/Units 14:06 14:06 WBC (4.8-10.8) X10*3/uL RBC (4.20-5.50) X10*6/uL Hgb (12.0-16.0) g/dl Hct (37-47) % MCV (80-98) fL MCH (27.0-33.0) pg MCHC (31.0-35.0) g/dl RDW (11.0-16.0) % Plt Count (160-400) X10*3/uL MPV Immature Gran % (Auto) (0.0-0.4) % Neut % (Auto) (45-73) % Lymph % (Auto) (20-40) % Ballard % (Auto) (2-11) % Eos % (Auto) (0-4) % Baso % (Auto) (0-2) % Lymph # (Auto) (1.2-4.9) X10*3/uL Ballard # (Auto) (0.1-1.2) X10*3/uL Eos # (Auto) (0.0-0.4) X10*3/uL Baso # (Auto) (0.0-0.2) X10*3/uL Abs Immat Gran (auto) (0.00-0.03) X10*3/uL Absolute Neuts (auto) (2.0-8.3) X10*3/uL Absolute Nucleated RBC (0.0-0.012) X10*3/uL Nucleated RBC % (auto) (0.0-0.2) /100WBC PT (9.9-13.0) SEC INR (0.9-1.1) APTT (24.1-38.0) SEC Sodium 137 (135-145) mmol/L Potassium 5.2 H (3.3-5.1) mmol/L Chloride 102 (96-108) mmol/L Carbon Dioxide 29 (22-29) mmol/L Anion Gap 11 L (12-20) BUN 21 H (9-16) mg/dL Creatinine 2.44 H (0.5-1.4) mg/dL Estim Creat Clear Calc 23.5 Estimated GFR 20 Random Glucose 66 D (60-115) mg/dL Calcium 8.6 (8.4-10.2) mg/dL Magnesium 2.0 (1.6-2.6) mg/dL Total Bilirubin 1.6 H (0.0-1.0) mg/dL AST 57 H (5-31) U/L ALT 27 (0-31) U/L Alkaline Phosphatase 137 H (39-117) U/L Total Creatine Kinase 23 L (26-140) U/L Troponin I High Sens 7.1 (<3.5-17.0) ng/L Total Protein 5.4 L (6.5-8.0) g/dL Albumin 2.5 L (3.5-5.0) g/dL Lipase 28 (8-78) U/L Imaging Data Chest x-ray: Attestation: I personally reviewed and interpreted this imaging study as follows: ECG Data ECG #1: Attestation: I personally reviewed and interpreted this ECG as follows: ECG interpretation date: 04/09/21 ECG interpretation time: 09:30 Interpretation: Normal sinus rhythm with ventricular rate of 66 with a normal CO interval normal QRS duration normal QT/QTC interval. No acute ischemic change noted. No prior EKGs in our system to compare to at this time. Critical Care Time Critical Care Time Critical Care Time: Yes Total Critical Care Time: 60 Attestation: I personally attest to this time spent taking care of the patient Discharge Plan Discharge Clinical Impression: Postdialysis syndrome Patient Disposition: Home, Self-Care Instructions: Hemodialysis (DC) Referrals: Physician,Unknown [Primary Care Provider] - 2 days (your pcp) Print Language: Chinese
[2021-04-09 12:37] VITALS: BP 108/36; PULSE 68; RESP 16; O2SAT 98
[2021-04-09 13:59] VITALS: BP 100/38; PULSE 65
[2021-04-09 14:00] VITALS: BP 102/30; PULSE 68
[2021-04-09 14:06] VITALS: BP 102/30; PULSE 65; RESP 16; TEMP 36.6; O2SAT 100
[2021-04-09 14:48] LABS: Troponin-I High Sensitivity 7.1 ng/L (<3.5-17.0)
[2021-04-09 14:54] LABS: Alanine Aminotransferase 27 U/L (0-31); Albumin Level 2.5 g/dL (3.5-5.0); Alkaline Phosphatase 137 U/L (39-117); Anion Gap 11 (12-20); Aspartate Amino Transferase 57 U/L (5-31); Bilirubin Total 1.6 mg/dL (0.0-1.0); Blood Urea Nitrogen 21 mg/dL (9-16); Calcium 8.6 mg/dL (8.4-10.2); Carbon Dioxide 29 mmol/L (22-29); Chloride 102 mmol/L (96-108); Creatinine Clr Calc Pharmacy 23.5; Estimated Glomerular Filt Rate 20; Glucose Random 66 mg/dL (60-115); Lipase 28 U/L (8-78); Potassium 5.2 mmol/L (3.3-5.1); Sodium 137 mmol/L (135-145); Total Protein 5.4 g/dL (6.5-8.0)
== END 2021-04-09 16:40 | disposition home or self-care (01) ==
PROVIDERS: Physician Assistant Medical; Emergency Provider Emergency Medicine
DX: R07.9 Chest pain, unspecified (principal); I12.9 Hypertensive chronic kidney disease with stage 1 through stage 4 chronic kidney disease, or unspecified chronic kidney disease; E11.22 Type 2 diabetes mellitus with diabetic chronic kidney disease; N18.9 Chronic kidney disease, unspecified; Z87.891 Personal history of nicotine dependence
CPT/HCPCS: 36415; 71046; 80053; 82550; 83690; 83735; 84484; 85025; 85610; 85730; 93005; 99285

== ENCOUNTER 2021-04-13 00:16 | Outpatient (REF) | payer OTHER, SELFPAY ==
[2021-04-13 07:09] LABS: Hematocrit 29.9 % (37-47); Hemoglobin 8.9 g/dl (12.0-16.0); Mean Corpuscular HGB Conc 29.8 g/dl (31.0-35.0); Mean Corpuscular Hemoglobin 22.5 pg (27.0-33.0); Mean Corpuscular Volume 75.7 fL (80-98); Platelet Count 100 X10*3/uL (160-400); Red Blood Count 3.95 X10*6/uL (4.20-5.50); Red Cell Distribution Width 15.9 % (11.0-16.0); White Blood Count 6.6 X10*3/uL (4.8-10.8)
[2021-04-13 07:12] LABS: INTERNATIONAL NORM RATIO 1.2 (0.9-1.1); Prothrombin Time 13.3 SEC (9.9-13.0)
[2021-04-13 07:44] LABS: Alanine Aminotransferase 20 U/L (0-31); Albumin Level 2.1 g/dL (3.5-5.0); Alkaline Phosphatase 121 U/L (39-117); Anion Gap 12 (12-20); Aspartate Amino Transferase 30 U/L (5-31); Bilirubin Direct 0.5 mg/dL (0.0-0.5); Bilirubin Total 0.7 mg/dL (0.0-1.0); Blood Urea Nitrogen 34 mg/dL (9-16); Calcium 8.9 mg/dL (8.4-10.2); Carbon Dioxide 30 mmol/L (22-29); Chloride 101 mmol/L (96-108); Estimated Glomerular Filt Rate 12; Glucose Random 108 mg/dL (60-115); Potassium 4.6 mmol/L (3.3-5.1); Sodium 138 mmol/L (135-145); Total Protein 4.6 g/dL (6.5-8.0)
== END 2021-04-13 00:17 | disposition home or self-care (01) ==
LOC: HO.MMNH3L 00:16
PROVIDERS: Visit Provider Family Medicine
DX: E11.22 Type 2 diabetes mellitus with diabetic chronic kidney disease (principal); N18.4 Chronic kidney disease, stage 4 (severe)
CPT/HCPCS: 36415; 80048; 80076; 85027; 85610

== ENCOUNTER 2021-04-20 00:27 | Outpatient (REF) | payer OTHER, SELFPAY ==
[2021-04-20 06:49] LABS: Hematocrit 30.5 % (37-47); Hemoglobin 9.1 g/dl (12.0-16.0); Mean Corpuscular HGB Conc 29.8 g/dl (31.0-35.0)
[2021-04-20 06:51] LABS: Mean Corpuscular Hemoglobin 22.5 pg (27.0-33.0); Mean Corpuscular Volume 75.3 fL (80-98); Red Blood Count 4.05 X10*6/uL (4.20-5.50); Red Cell Distribution Width 17.4 % (11.0-16.0); White Blood Count 6.1 X10*3/uL (4.8-10.8)
[2021-04-20 07:03] LABS: INTERNATIONAL NORM RATIO 1.1 (0.9-1.1); Prothrombin Time 12.6 SEC (9.9-13.0)
[2021-04-20 07:09] LABS: PLT ABN DIST 1
[2021-04-20 07:13] LABS: Alanine Aminotransferase 18 U/L (0-31); Albumin Level 2.2 g/dL (3.5-5.0); Alkaline Phosphatase 120 U/L (39-117); Anion Gap 13 (12-20); Aspartate Amino Transferase 30 U/L (5-31); Bilirubin Direct 0.6 mg/dL (0.0-0.5); Bilirubin Total 1.2 mg/dL (0.0-1.0); Blood Urea Nitrogen 38 mg/dL (9-16); Calcium 8.5 mg/dL (8.4-10.2); Carbon Dioxide 29 mmol/L (22-29); Chloride 102 mmol/L (96-108); Potassium 4.7 mmol/L (3.3-5.1); Sodium 139 mmol/L (135-145); Total Protein 4.6 g/dL (6.5-8.0)
[2021-04-20 07:40] LABS: Estimated Glomerular Filt Rate 11; Glucose Random 41 mg/dL (60-115)
[2021-04-20 07:52] LABS: Platelet Count 72 X10*3/uL (160-400)
== END 2021-04-20 00:28 | disposition home or self-care (01) ==
LOC: HO.MMNH3L 00:27
PROVIDERS: Visit Provider Family Medicine
DX: E11.22 Type 2 diabetes mellitus with diabetic chronic kidney disease (principal); N18.4 Chronic kidney disease, stage 4 (severe)
CPT/HCPCS: 36415; 80048; 80076; 85027; 85610

== ENCOUNTER 2021-04-27 05:00 | Outpatient (REF) | payer OTHER, SELFPAY ==
[2021-04-27 07:16] LABS: INTERNATIONAL NORM RATIO 1.2 (0.9-1.1); Prothrombin Time 13.3 SEC (9.9-13.0)
[2021-04-27 07:17] LABS: Hemoglobin 9.3 g/dl (12.0-16.0); Mean Corpuscular Volume 76.5 fL (80-98)
[2021-04-27 07:19] LABS: Hematocrit 31.6 % (37-47); Mean Corpuscular HGB Conc 29.4 g/dl (31.0-35.0); Mean Corpuscular Hemoglobin 22.5 pg (27.0-33.0); Platelet Count 112 X10*3/uL (160-400); Red Blood Count 4.13 X10*6/uL (4.20-5.50); Red Cell Distribution Width 17.4 % (11.0-16.0); White Blood Count 8.4 X10*3/uL (4.8-10.8)
[2021-04-27 07:36] LABS: PLT ABN DIST 1
[2021-04-27 08:07] LABS: Alanine Aminotransferase 18 U/L (0-31); Albumin Level 2.2 g/dL (3.5-5.0); Alkaline Phosphatase 116 U/L (39-117); Anion Gap 14 (12-20); Aspartate Amino Transferase 28 U/L (5-31); Bilirubin Direct 0.6 mg/dL (0.0-0.5); Bilirubin Total 1.3 mg/dL (0.0-1.0); Blood Urea Nitrogen 38 mg/dL (9-16); Calcium 8.7 mg/dL (8.4-10.2); Carbon Dioxide 27 mmol/L (22-29); Chloride 103 mmol/L (96-108); Estimated Glomerular Filt Rate 11; Glucose Random 112 mg/dL (60-115); Potassium 4.9 mmol/L (3.3-5.1); Sodium 139 mmol/L (135-145); Total Protein 4.7 g/dL (6.5-8.0)
== END 2021-04-27 05:01 | disposition home or self-care (01) ==
LOC: HO.MMNH3L 05:00
PROVIDERS: Visit Provider Family Medicine
DX: E11.22 Type 2 diabetes mellitus with diabetic chronic kidney disease (principal); N18.4 Chronic kidney disease, stage 4 (severe)
CPT/HCPCS: 36415; 80048; 80076; 85027; 85610

== ENCOUNTER 2021-05-04 01:03 | Outpatient (REF) | payer OTHER, MEDICAID, SELFPAY ==
[2021-05-04 06:42] LABS: INTERNATIONAL NORM RATIO 1.2 (0.9-1.1); Prothrombin Time 13.4 SEC (9.9-13.0)
[2021-05-04 07:07] LABS: Hematocrit 30.4 % (37-47); Hemoglobin 9.2 g/dl (12.0-16.0); Mean Corpuscular HGB Conc 30.3 g/dl (31.0-35.0); Mean Corpuscular Hemoglobin 22.7 pg (27.0-33.0); Mean Corpuscular Volume 75.1 fL (80-98); Red Blood Count 4.05 X10*6/uL (4.20-5.50); Red Cell Distribution Width 17.1 % (11.0-16.0); White Blood Count 7.2 X10*3/uL (4.8-10.8)
[2021-05-04 07:25] LABS: Alanine Aminotransferase 20 U/L (0-31); Albumin Level 2.1 g/dL (3.5-5.0); Alkaline Phosphatase 116 U/L (39-117); Anion Gap 12 (12-20); Aspartate Amino Transferase 33 U/L (5-31); Bilirubin Direct 0.5 mg/dL (0.0-0.5); Bilirubin Total 0.9 mg/dL (0.0-1.0); Blood Urea Nitrogen 36 mg/dL (9-16); Calcium 8.5 mg/dL (8.4-10.2); Carbon Dioxide 31 mmol/L (22-29); Chloride 100 mmol/L (96-108); Estimated Glomerular Filt Rate 12; Potassium 4.7 mmol/L (3.3-5.1); Sodium 138 mmol/L (135-145); Total Protein 4.6 g/dL (6.5-8.0)
[2021-05-04 07:47] LABS: Platelet Count 72 X10*3/uL (160-400)
[2021-05-04 09:31] LABS: Glucose Random 50 mg/dL (60-115)
== END 2021-05-04 01:04 | disposition home or self-care (01) ==
LOC: HO.MMNH3L 01:03
PROVIDERS: Visit Provider Family Medicine
DX: E11.22 Type 2 diabetes mellitus with diabetic chronic kidney disease (principal); N18.4 Chronic kidney disease, stage 4 (severe)
CPT/HCPCS: 36415; 80048; 80076; 85027; 85610

== ENCOUNTER 2021-05-12 21:13 | Outpatient (REF) | payer OTHER, SELFPAY | END 2021-05-12 21:14 | disposition home or self-care (01) | LOC: HO.MMNH3L 21:13 | PROVIDERS: Visit Provider Family Medicine | DX: Z13.89 Encounter for screening for other disorder (principal) | CPT/HCPCS: 36415 ==

== ENCOUNTER 2021-05-13 12:45 | Outpatient (REF) | payer MEDICAID, SELFPAY ==
[2021-05-13 06:51] LABS: INTERNATIONAL NORM RATIO 1.2 (0.9-1.1); Prothrombin Time 13.3 SEC (9.9-13.0)
[2021-05-13 06:56] LABS: Hematocrit 32.8 % (37-47); Hemoglobin 9.7 g/dl (12.0-16.0); Mean Corpuscular HGB Conc 29.6 g/dl (31.0-35.0); Mean Corpuscular Hemoglobin 22.4 pg (27.0-33.0); Mean Corpuscular Volume 75.6 fL (80-98); NRBC Pct Auto 0.3 /100WBC (0.0-0.2); Platelet Count 95 X10*3/uL (160-400); Red Blood Count 4.34 X10*6/uL (4.20-5.50); Red Cell Distribution Width 17.8 % (11.0-16.0); White Blood Count 7.8 X10*3/uL (4.8-10.8)
[2021-05-13 07:23] LABS: Alanine Aminotransferase 26 U/L (0-31); Albumin Level 2.2 g/dL (3.5-5.0); Alkaline Phosphatase 135 U/L (39-117); Anion Gap 11 (12-20); Aspartate Amino Transferase 37 U/L (5-31); Bilirubin Direct 0.6 mg/dL (0.0-0.5); Bilirubin Total 1.4 mg/dL (0.0-1.0); Blood Urea Nitrogen 27 mg/dL (9-16); Calcium 8.8 mg/dL (8.4-10.2); Carbon Dioxide 29 mmol/L (22-29); Chloride 101 mmol/L (96-108); Estimated Glomerular Filt Rate 14; Glucose Random 41 mg/dL (60-115); Potassium 3.8 mmol/L (3.3-5.1); Sodium 137 mmol/L (135-145); Total Protein 4.9 g/dL (6.5-8.0)
== END 2021-05-13 12:46 | disposition home or self-care (01) ==
LOC: HO.MMNH3L 12:45
PROVIDERS: Visit Provider Family Medicine
DX: E11.22 Type 2 diabetes mellitus with diabetic chronic kidney disease (principal); N18.4 Chronic kidney disease, stage 4 (severe)
CPT/HCPCS: 36415; 80048; 80076; 85027; 85610

== ENCOUNTER 2021-05-18 | Outpatient (REF) | payer OTHER, MEDICAID, SELFPAY ==
[2021-05-18 06:26] LABS: Hemoglobin 9.3 g/dl (12.0-16.0); PLT ABN DIST 1; Red Cell Distribution Width 17.7 % (11.0-16.0)
[2021-05-18 06:27] LABS: Hematocrit 30.3 % (37-47); Mean Corpuscular HGB Conc 30.7 g/dl (31.0-35.0); Red Blood Count 4.04 X10*6/uL (4.20-5.50); White Blood Count 5.9 X10*3/uL (4.8-10.8)
[2021-05-18 06:29] LABS: INTERNATIONAL NORM RATIO 1.1 (0.9-1.1); Prothrombin Time 12.3 SEC (9.9-13.0)
[2021-05-18 06:33] LABS: Platelet Count 74 X10*3/uL (160-400)
[2021-05-18 07:34] LABS: Alanine Aminotransferase 13 U/L (0-31); Albumin Level 1.9 g/dL (3.5-5.0); Alkaline Phosphatase 112 U/L (39-117); Anion Gap 14 (12-20); Aspartate Amino Transferase 29 U/L (5-31); Bilirubin Direct 0.4 mg/dL (0.0-0.5); Bilirubin Total 0.6 mg/dL (0.0-1.0); Blood Urea Nitrogen 34 mg/dL (9-16); Calcium 8.4 mg/dL (8.4-10.2); Carbon Dioxide 26 mmol/L (22-29); Chloride 100 mmol/L (96-108); Estimated Glomerular Filt Rate 12; Glucose Random 105 mg/dL (60-115); Potassium 3.9 mmol/L (3.3-5.1); Sodium 136 mmol/L (135-145); Total Protein 4.3 g/dL (6.5-8.0)
== END 2021-05-18 00:01 | disposition home or self-care (01) ==
LOC: HO.MMNH3L
PROVIDERS: Visit Provider Family Medicine
DX: N18.4 Chronic kidney disease, stage 4 (severe) (principal); E11.22 Type 2 diabetes mellitus with diabetic chronic kidney disease
CPT/HCPCS: 36415; 80048; 80076; 85027; 85610

== ENCOUNTER 2021-05-25 00:32 | Outpatient (REF) | payer OTHER, MEDICAID, SELFPAY ==
[2021-05-25 06:55] LABS: Hemoglobin 9.4 g/dl (12.0-16.0); Mean Corpuscular Hemoglobin 22.8 pg (27.0-33.0); Red Blood Count 4.13 X10*6/uL (4.20-5.50)
[2021-05-25 06:57] LABS: Mean Corpuscular HGB Conc 30.3 g/dl (31.0-35.0); Mean Corpuscular Volume 75.1 fL (80-98); Platelet Count 116 X10*3/uL (160-400); Red Cell Distribution Width 16.6 % (11.0-16.0); White Blood Count 8.4 X10*3/uL (4.8-10.8)
[2021-05-25 07:13] LABS: INTERNATIONAL NORM RATIO 1.2 (0.9-1.1); Prothrombin Time 13.9 SEC (9.9-13.0)
[2021-05-25 08:51] LABS: Alanine Aminotransferase 13 U/L (0-31); Albumin Level 1.8 g/dL (3.5-5.0); Alkaline Phosphatase 101 U/L (39-117); Anion Gap 11 (12-20); Aspartate Amino Transferase 21 U/L (5-31); Bilirubin Direct 0.6 mg/dL (0.0-0.5); Blood Urea Nitrogen 44 mg/dL (9-16); Calcium 8.2 mg/dL (8.4-10.2); Carbon Dioxide 27 mmol/L (22-29); Chloride 98 mmol/L (96-108); Estimated Glomerular Filt Rate 10; Glucose Random 91 mg/dL (60-115); Potassium 3.8 mmol/L (3.3-5.1); Sodium 132 mmol/L (135-145); Total Protein 4.2 g/dL (6.5-8.0)
== END 2021-05-25 00:33 | disposition home or self-care (01) ==
LOC: HO.MMNH3L 00:32
PROVIDERS: Visit Provider Family Medicine
DX: N18.4 Chronic kidney disease, stage 4 (severe) (principal); E11.22 Type 2 diabetes mellitus with diabetic chronic kidney disease
CPT/HCPCS: 36415; 80048; 80076; 85027; 85610

== ENCOUNTER 2021-06-01 00:18 | Outpatient (REF) | payer OTHER, MEDICAID, SELFPAY ==
[2021-06-01 07:11] LABS: INTERNATIONAL NORM RATIO 1.3 (0.9-1.1); Prothrombin Time 14.4 SEC (9.9-13.0)
[2021-06-01 07:13] LABS: Hematocrit 31.4 % (37-47); Hemoglobin 9.8 g/dl (12.0-16.0); Mean Corpuscular HGB Conc 31.2 g/dl (31.0-35.0); Mean Corpuscular Volume 73.5 fL (80-98); Red Blood Count 4.27 X10*6/uL (4.20-5.50); Red Cell Distribution Width 16.9 % (11.0-16.0); White Blood Count 7.2 X10*3/uL (4.8-10.8)
[2021-06-01 07:14] LABS: Platelet Count 67 X10*3/uL (160-400)
[2021-06-01 08:11] LABS: Alanine Aminotransferase 15 U/L (0-31); Alkaline Phosphatase 97 U/L (39-117); Anion Gap 11 (12-20); Aspartate Amino Transferase 23 U/L (5-31); Bilirubin Direct 0.5 mg/dL (0.0-0.5); Bilirubin Total 0.8 mg/dL (0.0-1.0); Blood Urea Nitrogen 39 mg/dL (9-16); Calcium 8.3 mg/dL (8.4-10.2); Carbon Dioxide 27 mmol/L (22-29); Chloride 98 mmol/L (96-108); Estimated Glomerular Filt Rate 11; Glucose Random 35 mg/dL (60-115); Potassium 3.5 mmol/L (3.3-5.1); Sodium 132 mmol/L (135-145); Total Protein 4.2 g/dL (6.5-8.0)
== END 2021-06-01 00:19 | disposition home or self-care (01) ==
LOC: HO.MMNH3L 00:18
PROVIDERS: Visit Provider Family Medicine
DX: N18.4 Chronic kidney disease, stage 4 (severe) (principal); E11.22 Type 2 diabetes mellitus with diabetic chronic kidney disease
CPT/HCPCS: 36415; 80048; 80076; 85027; 85610

== ENCOUNTER 2021-06-08 01:11 | Outpatient (REF) | payer OTHER, SELFPAY ==
[2021-06-08 07:09] LABS: Hematocrit 33.3 % (37-47); Hemoglobin 10.1 g/dl (12.0-16.0); Mean Corpuscular HGB Conc 30.3 g/dl (31.0-35.0); Mean Corpuscular Hemoglobin 22.8 pg (27.0-33.0); Mean Corpuscular Volume 75.2 fL (80-98); NRBC Pct Auto 0.3 /100WBC (0.0-0.2); Platelet Count 106 X10*3/uL (160-400); Red Blood Count 4.43 X10*6/uL (4.20-5.50); Red Cell Distribution Width 16.6 % (11.0-16.0); White Blood Count 7.7 X10*3/uL (4.8-10.8)
[2021-06-08 07:14] LABS: INTERNATIONAL NORM RATIO 1.2 (0.9-1.1); Prothrombin Time 13.5 SEC (9.9-13.0)
[2021-06-08 08:50] LABS: Alanine Aminotransferase 16 U/L (0-31); Albumin Level 2.1 g/dL (3.5-5.0); Alkaline Phosphatase 103 U/L (39-117); Anion Gap 11 (12-20); Aspartate Amino Transferase 25 U/L (5-31); Bilirubin Direct 0.7 mg/dL (0.0-0.5); Blood Urea Nitrogen 49 mg/dL (9-16); Calcium 8.8 mg/dL (8.4-10.2); Carbon Dioxide 28 mmol/L (22-29); Chloride 100 mmol/L (96-108); Estimated Glomerular Filt Rate 11; Glucose Random 70 mg/dL (60-115); Potassium 3.2 mmol/L (3.3-5.1); Sodium 136 mmol/L (135-145); Total Protein 4.7 g/dL (6.5-8.0)
== END 2021-06-08 01:12 | disposition home or self-care (01) ==
LOC: HO.MMNH3L 01:11
PROVIDERS: Visit Provider Family Medicine
DX: E11.22 Type 2 diabetes mellitus with diabetic chronic kidney disease (principal); N18.4 Chronic kidney disease, stage 4 (severe)
CPT/HCPCS: 36415; 80048; 80076; 85027; 85610

== ENCOUNTER 2021-06-22 00:18 | Outpatient (REF) | payer OTHER, SELFPAY | END 2021-06-22 00:19 | disposition home or self-care (01) | LOC: HO.MMNH3L 00:18 | PROVIDERS: Visit Provider Family Medicine | DX: Z13.89 Encounter for screening for other disorder (principal) ==

== ENCOUNTER 2021-06-29 00:20 | Outpatient (REF) | payer OTHER, SELFPAY | END 2021-06-29 00:21 | disposition home or self-care (01) | LOC: HO.MMNH3L 00:20 | PROVIDERS: Visit Provider Family Medicine | DX: Z13.89 Encounter for screening for other disorder (principal) ==